=== PATIENT | female | born 1950 ===

== ENCOUNTER 2024-01-01 09:40 | Outpatient (AMB) | payer MEDICARE, OTHER, SELFPAY ==
--- NOTE | 2024-01-01 09:51 | A.OFFPC_ITS ---
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 Allergies tramadol [From Ultram] Allergy (Mild, Verified 01/01/24 09:52) rash Medication List - Last Reconciled 01/01/24 by Snow Campbell MD acetaminophen 325 mg PO Q6H PRN acetaminophen-codeine 300-30 mg 1 tab PO Q6H PRN amlodipine 5 mg PO DAILY escitalopram oxalate 20 mg PO DAILY ibuprofen 600 mg PO TID PRN lisinopril 40 mg PO DAILY omeprazole 40 mg PO DAILY semaglutide (Ozempic) 0.5 mg (0.736 mL) subcut QWEEK Tobacco use date assessed: 01/01/24 Fall risk assessment: No Falls in past year Last assessed Fall Risk: 01/01/24 Dental Screening Dental Screen Date: 01/01/24 Did you have a dental visit in the last 12 months?: Yes Did you have a dental problem in the last 6 months where you did not have access to dental care?: No Was dental information given to patient?: Patient has dentist HPI HPI Comments History of Present Illness Details The patient is a 73 year old female with a past medical history of hypertension, OA, GERD, depression presenting for follow up Depression: on lexapro 20mg daily. PHQ still positive but she is content with her current management. Declines referral . No SI Hypertension: stable on amlodipine and lisinopril. Was tolerating ozempic for weight loss then insurance stopped covering. Right leg has been feeling heavy. Increased low back pain bilateral. Ongoing left ankle pain and swelling PFSH Family History (Updated 01/01/24 @ 09:57 by Janene Nixon CMA) Mother Alcoholism Brother Diabetes History of quadruple bypass Other Substance abuse Social History (Updated 01/01/24 @ 09:54 by Janene Nixon CMA) Housing: House Patient Tobacco Use Status: Never used Tobacco e-Cigarette/Vaping Use: Never Used Second Hand Smoke Exposure: Yes (past ) service: No Current occupational status: retired Cognitive needs: No Hearing needs: No Vision needs: Yes (glasses) Questionnaire PHQ-9 Over the last 2 weeks, how often have you been bothered by any of the following problems? 1. Little interest or pleasure in doing things: more than half the days 2. Feeling down, depressed, or hopeless: several days 3. Trouble falling or staying asleep, or sleeping too much: more than half the days 4. Feeling tired or having little energy: nearly every day 5. Poor appetite or overeating: not at all 6. Feeling bad about yourself - or that you are a failure or have let yourself or your family down: not at all 7. Trouble concentrating on things, such as reading the newspaper or watching television: several days 8. Moving or speaking so slowly that other people could have noticed. Or the opposite - being so fidgety or restless that you have been moving around a lot more than usual: not at all 9. Thoughts that you would be better off or of hurting yourself in some way: not at all Total score: 9 Depression Screening Interpretation: Positive Depression Screening Follow-up: Existing condition and Other (declines medication changes or addition) Depression Screening Done: Yes 35280 - PHQ-9 Billing: Yes Source: Developed by Drs. Nash Denny, Maggie Cuellar, Luisito Canales and colleagues, with an educational milind from [employer]. Thrive Questionnaire Date Thrive assessed: 01/01/24 I am a: Patient What is your living situation today?: I have a steady place to live Within the past 12 months, did the food you bought not last and you didn't have the money to get more?: Never true Within the past 12 months, did you worry whether your food would run out before you got money to buy more?: Never true Do you have trouble paying for medicines?: No Do you have trouble getting transportation to medical appointments?: No Do you have trouble paying your heating and electricity bill?: No Do you have trouble taking care of your child, family member or friend?: No Do you have trouble with day-to-day activities such as bathing, preparing meals, shopping, managing finances, etc.?: No Are you currently unemployed and looking for a job?: No Are you interested in more education?: No Please select the resources that you would like help with: None Currently or been in a relationship where the following occur: no concerns reported THRIVE Score: 0 AUDIT C Alcohol Use Questionnaire (AUDIT-C) 1. How often do you have a drink containing alcohol?: 2-4 times a month (1-2 times a week) 2. How many drinks containing alcohol do you have on a typical day when you are drinking?: 1 or 2 Total Score: 2 JINA-7 AMB Questionnaire JINA-7 Date JINA - 7 assessed: 01/01/24 Feeling nervous, anxious, or on edge: 1 = Several days Not being able to stop or control worryin = Nearly every day Worrying too much about different things: 3 = Nearly every day Trouble relaxin = More than half the days Being so restless that it is hard to sit still: 0 = Not at all Becoming easily annoyed or irritable: 0 = Not at all Feeling afraid as if something awful might happen: 2 = More than half the days Total JINA-7 score (0-4 normal; 5-9 mild; 10-14 moderate; 15-21 severe): 11 Source: Developed by Drs. Nash Denny, Maggie Cuellar, Luisito Canales and colleagues, with an educational milind from [employer]. JINA-7 Assessment Billing JINA-7 Assessment Tool: JINA-7 Assessment 44231 Review of Systems Const Details: ROS CONSTITUTIONAL: Denies weight loss, fever and chills. HEENT: Denies changes in vision and hearing. RESPIRATORY: Denies SOB and cough. CV: Denies palpitations and CP GI: Denies abdominal pain, nausea, vomiting and diarrhea. : Denies dysuria and urinary frequency. MSK: Denies new myalgia and joint pain. SKIN: Denies rash and pruritus. NEUROLOGICAL: Denies headache PSYCHIATRIC: see hpi Physical exam (Primary Care) Vital Signs: Last Vital Signs Temp 98.2 F 01/01/24 10:05 Pulse 80 01/01/24 10:05 Resp 14 01/01/24 10:05 BP 128/78 01/01/24 10:05 Pulse Ox 96 01/01/24 10:05 Oxygen Delivery Method Room Air 01/01/24 10:05 PHYSICAL EXAM: GENERAL: Alert and oriented x 3. NAD EYES: EOMI. Anicteric. HENT: Moist mucous membranes. No scleral icterus. No cervical lymphadenopathy. LUNGS: Clear to auscultation bilaterally. CARDIOVASCULAR: Regular rate and rhythm. No murmur. No JVD. ABDOMEN: Soft, non-tender +bs EXTREMITIES: No edema. Non-tender. SKIN: No rashes or lesions. Warm. NEUROLOGIC: No focal neurological deficits. CN II-XII grossly intact PSYCHIATRIC: Cooperative. Appropriate mood and affect BMI result Body Mass Index 36.9 Tobacco/Smoking Status: Tobacco use Status Tobacco use date assessed 01/01/24 01/01/24 10:08 Patient Tobacco Use Status Never used Tobacco 01/01/24 10:08 Tobacco use type 01/01/24 10:08 e-Cigarette/Vaping Use Never Used 01/01/24 10:08 PHQ-9: PHQ-9 Score PHQ-9: Total score 9 01/01/24 10:09 Depression Screening Interpretation: Positive Depression Screening Follow-up: Existing condition and Other (declines medication changes or addition) Thrive Assessment: Date of Thrive Assessment Date Thrive assessed 01/01/24 01/01/24 10:08 Currently or been in a relationship where the following occur: no concerns reported Assessment and Plan Assessment & Plan (1) Hypertension: Comment: well controlled on current medication. continue. ozempic sent for weight loss assistance Code(s): I10 - Essential (primary) hypertension Qualifiers: Hypertension type: primary hypertension Qualified Code(s): I10 - Essential (primary) hypertension (2) Major depressive disorder, recurrent episode, in partial remission: Comment: stable on current medication. declines alteration in meds. declines therapy Code(s): F33.41 - Major depressive disorder, recurrent, in partial remission (3) GERD without esophagitis: Comment: stable on PPI Code(s): K21.9 - Gastro-esophageal reflux disease without esophagitis (4) Lumbosacral radiculopathy: Comment: referral to physiatry. xray ordered. patient request order for Sharif Code(s): M54.17 - Radiculopathy, lumbosacral region (5) Left ankle pain: Code(s): M25.572 - Pain in left ankle and joints of left foot Qualifiers: Chronicity: unspecified Qualified Code(s): M25.572 - Pain in left ankle and joints of left foot Plan: xr ordered. referral placed to physiatry. (6) Lumbosacral radiculopathy: Comment: referral to physiatry. xray ordered. patient request order for Sharif Code(s): M54.17 - Radiculopathy, lumbosacral region (7) Left ankle pain: Code(s): M25.572 - Pain in left ankle and joints of left foot Qualifiers: Chronicity: unspecified Qualified Code(s): M25.572 - Pain in left ankle and joints of left foot (8) Screening for hyperlipidemia: Code(s): Z13.220 - Encounter for screening for lipoid disorders (9) Screening, deficiency anemia, iron: Code(s): Z13.0 - Encounter for screening for diseases of the blood and blood-forming organs and certain disorders involving the immune mechanism Orders: Orders XR lumbar spine 2-3V Today M25.572 - Pain in left ankle and joints of left foot, M54.17 - Radiculopathy, lumbosacral region XR ankle LT min 3V Today M25.572 - Pain in left ankle and joints of left foot, M54.17 - Radiculopathy, lumbosacral region TSH reflex Free T4 Today F33.41 - Major depressive disorder, recurrent, in partial remission, I10 - Essential (primary) hypertension, Z13.0 - Encounter for screening for diseases of the blood and blood-forming organs and certain disorders involving the immune mechanism, Z13.220 - Encounter for screening for lipoid disorders Lipid Panel Today F33.41 - Major depressive disorder, recurrent, in partial remission, I10 - Essential (primary) hypertension, Z13.0 - Encounter for screening for diseases of the blood and blood-forming organs and certain disorders involving the immune mechanism, Z13.220 - Encounter for screening for lipoid disorders Complete Blood Count Auto Diff Today F33.41 - Major depressive disorder, recurrent, in partial remission, I10 - Essential (primary) hypertension, Z13.0 - Encounter for screening for diseases of the blood and blood-forming organs and certain disorders involving the immune mechanism, Z13.220 - Encounter for screening for lipoid disorders Comprehensive Met. Panel Today F33.41 - Major depressive disorder, recurrent, in partial remission, I10 - Essential (primary) hypertension, Z13.0 - Encounter for screening for diseases of the blood and blood-forming organs and certain disorders involving the immune mechanism, Z13.220 - Encounter for screening for lipoid disorders Referrals Physical Medicine and Rehabilitation Referral M25.572 - Pain in left ankle and joints of left foot, M54.17 - Radiculopathy, lumbosacral region Medications: New semaglutide (Ozempic) 0.5 mg (0.736 mL) subcut QWEEK 3 mL 3RF acetaminophen-codeine 300-30 mg 1 tab PO Q6H 30 days PRN 60 tabs 0RF pain Coding Level of Care Code Est Pt Level 5 (98591) Complex EM visit Add On G2211 Diagnoses Primary hypertension I10 Hypertension type: primary hypertension Major depressive disorder, recurrent episode, in partial remission F33.41 GERD without esophagitis K21.9 Lumbosacral radiculopathy M54.17 Left ankle pain, unspecified chronicity M25.572 Chronicity: unspecified Screening for hyperlipidemia Z13.220 Screening, deficiency anemia, iron Z13.0 Additional Codes JINA-7 Assessment Billing - JINA-7 Assessment Tool: JINA-7 Assessment 99348 ([id number]) Time Spent (min) 43
[2024-01-01 10:05] VITALS: BP 128/78; PULSE 80; RESP 14; TEMP 36.8; O2SAT 96; BMI 36.9
== END 2024-01-01 10:45 | disposition home or self-care (01) ==
PROVIDERS: PCP Internal Medicine; Visit Provider Internal Medicine
DX: I10 Essential (primary) hypertension (principal); F33.41 Major depressive disorder, recurrent, in partial remission; K21.9 Gastro-esophageal reflux disease without esophagitis; M54.17 Radiculopathy, lumbosacral region; M25.572 Pain in left ankle and joints of left foot; Z13.220 Encounter for screening for lipoid disorders; Z13.0 Encounter for screening for diseases of the blood and blood-forming organs and certain disorders involving the immune mechanism
CPT/HCPCS: 99215; G2211

== ENCOUNTER 2024-01-01 10:48 | Outpatient (REF) | payer MEDICARE, OTHER, SELFPAY ==
[2024-01-01 14:27] LABS: MANUAL DIFF FLAG NO
[2024-01-01 14:32] LABS: Basophils Absolute Auto 0.1 X10*3/uL (0.0-0.2); Basophils Percent Auto 1.3 % (0-2); Eosinophils Absolute Auto 0.3 X10*3/uL (0.0-0.4); Eosinophils Percent Auto 4.3 % (0-4); Hematocrit 32.8 % (37.0-47.0); Imm Gran Abs Auto 0.06 X10*3/uL (0.00-0.03); Imm Gran Pct Auto 0.8 % (0.0-0.4); Lymphocytes Absolute Auto 1.7 X10*3/uL (1.2-4.9); Lymphocytes Percent Auto 22.8 % (20-40); Mean Corpuscular HGB Conc 30.5 g/dl (31.0-35.0); Mean Corpuscular Hemoglobin 23.1 pg (27.0-33.0); Mean Corpuscular Volume 75.9 fL (80.0-98.0); Monocytes Absolute Auto 0.5 X10*3/uL (0.1-1.2); Neutrophils Absolute Auto 4.9 x10*3/uL (2.0-8.3); Neutrophils Percent Auto 64.8 % (45-73); Platelet Count 431 X10*3/uL (160-400); Red Blood Count 4.32 X10*6/uL (4.20-5.50); Red Cell Distribution Width 16.5 % (11.0-16.0); White Blood Count 7.5 X10*3/uL (4.8-10.8)
[2024-01-01 15:25] LABS: Alanine Aminotransferase 14 U/L (0-31); Albumin Level 4.2 g/dL (3.5-5.0); Alkaline Phosphatase 50 U/L (39-117); Anion Gap 11 (12-20); Aspartate Amino Transferase 15 U/L (5-31); Bilirubin Total 0.4 mg/dL (0.0-1.0); Blood Urea Nitrogen 8 mg/dL (9-16); Calcium 9.3 mg/dL (8.4-10.2); Carbon Dioxide 28 mmol/L (22-29); Chloride 104 mmol/L (96-108); Cholesterol 181 mg/dL (<200); Estimated Glomerular Filt Rate > 60; Glucose Random 83 mg/dL (60-115); HDL Cholesterol 55 mg/dL (>40); LDL Cholesterol Calculated 105 mg/dL (<100); Potassium 3.9 mmol/L (3.3-5.1); Sodium 139 mmol/L (135-145); TSH reflex Free T4 1.85 uIU/mL (0.32-4.0); Total Protein 7.3 g/dL (6.5-8.0); Triglycerides 107 mg/dL (<150)
== END 2024-01-01 10:49 | disposition home or self-care (01) ==
LOC: HO.WFDLDS 10:48
PROVIDERS: Visit Provider Internal Medicine
DX: I10 Essential (primary) hypertension (principal); F33.41 Major depressive disorder, recurrent, in partial remission; Z13.220 Encounter for screening for lipoid disorders; Z13.0 Encounter for screening for diseases of the blood and blood-forming organs and certain disorders involving the immune mechanism
CPT/HCPCS: 36415; 80053; 80061; 84443; 85025

== ENCOUNTER 2024-03-30 10:16 | Outpatient (AMB) | payer MEDICARE, OTHER, SELFPAY ==
--- NOTE | 2024-03-30 10:18 | MHC.PC.OV ---
Vital Signs 03/30/24 10:20 Height 5 ft 4 in Weight 211 lb BMI 36.2 BP 110/64 Blood Pressure Location Rt brachial Position Sitting Respiration 12 Pulse 92 Pulse Source Pulse Oximeter Pulse Oximetry (%) 96 Oxygen Delivery Method Room Air Intake Visit Reasons: pre op appointment for eye surgery 04/12 Intake Note: Patient is here for a pre-op for eye surgery in [place] by Dr. Garcia. Patient reports no history of cardiac concerns. 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 No chest pain, exertional dypsnea. Depression: Feeling really well on lexapro 20mg daily. Hypertension: stable on amlodipine and lisinopril. Was tolerating ozempic for weight loss then insurance stopped covering. MSK: stable LS radiculopathy. Right leg has been feeling heavy. Increased low back pain bilateral. Ongoing left ankle pain and swelling. interval xray with significant DDD. MRI was performed at [facility], not yet received. Colonoscopy 2022 ROS CONSTITUTIONAL: Denies weight loss, fever and chills. HEENT: Denies changes in vision and hearing. RESPIRATORY: Denies SOB and cough. CV: Denies palpitations and CP GI: Denies abdominal pain, nausea, vomiting and diarrhea. : Denies dysuria and urinary frequency. MSK: Denies new myalgia and joint pain. SKIN: Denies rash and pruritus. NEUROLOGICAL: Denies headache PSYCHIATRIC: Denies recent changes in mood. PHYSICAL EXAM: GENERAL: Alert and oriented x 3. NAD EYES: EOMI. Anicteric. HENT: Moist mucous membranes. No scleral icterus. No cervical lymphadenopathy. LUNGS: Clear to auscultation bilaterally. CARDIOVASCULAR: Regular rate and rhythm. No murmur. No JVD. ABDOMEN: Soft, non-tender +bs EXTREMITIES: No edema. Non-tender. SKIN: No rashes or lesions. Warm. NEUROLOGIC: No focal neurological deficits. CN II-XII grossly intact PSYCHIATRIC: Cooperative. Appropriate mood and affect [facility] Medical History (Updated 04/04/24 @ 10:53 by Snow Campbell MD) Hypertension Major depressive disorder, recurrent episode, in partial remission GERD without esophagitis Lumbosacral radiculopathy Left ankle pain Anemia, unspecified DDD (degenerative disc disease), lumbosacral Surgical History (Updated 03/30/24 @ 13:01 by Tia Jones [facility]) History of foot surgery Status post excision of lipoma History of cholecystectomy Family History (Updated 01/01/24 @ 09:57 by Janene Nixon [facility]) Mother Alcoholism Brother Diabetes History of quadruple bypass Other Substance abuse Social History (Updated 03/30/24 @ 13:02 by Tia Jones [facility]) Household Members: None Housing: House Are you a primary medication care manager to a significant other at home: No Do you presently have visiting nurse or other home services: No 75 years or older and lives alone: No Alcohol intake: never Patient Tobacco Use Status: Never used Tobacco e-Cigarette/Vaping Use: Never Used Second Hand Smoke Exposure: Yes (past ) Use of substances other than those prescribed or required for medical reasons: No Have you been hit, kicked, punched, or otherwise hurt by someone within the past year? If so, by whom?: No Do you feel safe in your current relationship?: No Current Relationship Is there a partner from a previous relationship who is making you feel unsafe now?: No Are you made to feel afraid or neglected: No service: No Current occupational status: retired Current occupational exposures/hazards: No Cognitive needs: No Hearing needs: No Vision needs: Yes (glasses) Questionnaire Thrive Questionnaire Date Thrive assessed: 01/01/24 JINA-7 AMB Questionnaire JINA-7 Date JINA - 7 assessed: 01/01/24 Source: Developed by Drs. Nash Denny, Maggie Cuellar, Luisito Canales and colleagues, with an educational milind from [employer]. Physical exam (Primary Care) Vital Signs: Last Vital Signs Pulse 92 03/30/24 10:20 Resp 12 03/30/24 10:20 BP 110/64 03/30/24 10:20 Pulse Ox 96 03/30/24 10:20 Oxygen Delivery Method Room Air 03/30/24 10:20 BMI result Body Mass Index 36.2 Tobacco/Smoking Status: Tobacco use Status Tobacco use date assessed 01/01/24 03/30/24 10:19 Patient Tobacco Use Status Never used Tobacco 03/30/24 13:02 Tobacco use type 01/01/24 10:43 e-Cigarette/Vaping Use Never Used 03/30/24 13:02 Thrive Assessment: Date of Thrive Assessment Date Thrive assessed 01/01/24 03/30/24 10:19 Office Procedures EKG Details: Cancelled- EKG machine Out of order [id number], Complete (DID NOT COMPLETE) Assessment and Plan Assessment & Plan (1) Preoperative cardiovascular examination: Code(s): Z01.810 - Encounter for preprocedural cardiovascular examination Plan: 73 y/o female with htn, depression, LS DDD for preop assessment No surgical risk factors Acceptable METs Has to return for EKG at which time addendum to be added. Overall low risk patient for low risk procedure (2) Hypertension: Code(s): I10 - Essential (primary) hypertension Qualifiers: Hypertension type: primary hypertension Qualified Code(s): I10 - Essential (primary) hypertension Plan Blood pressure well controlled. Orders: Orders AMB EKG-In Office 03/30/24 Z01.818 - Encounter for other preprocedural examination Coding Level of Care Code Est Pt Level 4 (95956) Diagnoses Preoperative cardiovascular examination Z01.810 Primary hypertension I10 Hypertension type: primary hypertension CPT Codes EKG - CPT: 77008-[id number], Complete ([id number])
[2024-03-30 10:20] VITALS: BP 110/64; PULSE 92; RESP 12; O2SAT 96; BMI 36.2
== END 2024-03-30 11:16 | disposition home or self-care (01) ==
PROVIDERS: PCP Internal Medicine; Visit Provider Internal Medicine
DX: I10 Essential (primary) hypertension (principal)
CPT/HCPCS: 93000; 99214

== ENCOUNTER 2024-06-14 08:58 | Outpatient (AMB) | payer MEDICARE, OTHER, SELFPAY ==
--- NOTE | 2024-06-14 09:01 | MHC.PC.OV ---
Vital Signs 06/14/24 09:05 Height 5 ft 4 in Weight 214 lb BMI 36.7 BP 118/76 Blood Pressure Location Lt brachial Position Sitting Respiration 16 Pulse 98 Pulse Source Pulse Oximeter Pulse Oximetry (%) 95 Oxygen Delivery Method Room Air Intake Visit Reasons: F/U 6 months Intake Note: Six month follow up Tipple Tender Required: No Allergies tramadol [From Ultram] Allergy (Mild, Verified 06/14/24 09:02) rash Tobacco use date assessed: 01/01/24 Dental Screening Dental Screen Date: 01/01/24 HPI HPI Comments History of Present Illness Details The patient is a 73 year old female with a past medical history of hypertension, OA, GERD, depression presenting for follow up Depression: Stable on lexapro 20mg daily. She has increased stress from her 26 year old son-he moved out of the house abruptly after desiring to undergo sex change but wouldn't talk to the family about things and now is not in contact. Hypertension: stable on amlodipine and lisinopril. Was tolerating ozempic for weight loss then insurance stopped covering. MSK: stable LS radiculopathy. Right leg has been feeling heavy. Increased low back pain bilateral. Ongoing left ankle pain and swelling. interval xray with significant DDD. MRI was performed at [facility]-patient was referred to physiatry Colonoscopy 2022 ROS CONSTITUTIONAL: Denies weight loss, fever and chills. HEENT: Denies changes in vision and hearing. RESPIRATORY: Denies SOB and cough. CV: Denies palpitations and CP GI: Denies abdominal pain, nausea, vomiting and diarrhea. : Denies dysuria and urinary frequency. MSK: Denies new myalgia and joint pain. SKIN: Denies rash and pruritus. NEUROLOGICAL: Denies headache PSYCHIATRIC: see HPI PHYSICAL EXAM: GENERAL: Alert and oriented x 3. NAD EYES: EOMI. Anicteric. HENT: Moist mucous membranes. No scleral icterus. No cervical lymphadenopathy. LUNGS: Clear to auscultation bilaterally. CARDIOVASCULAR: Regular rate and rhythm. No murmur. No JVD. ABDOMEN: Soft, non-tender +bs EXTREMITIES: No edema. Non-tender. SKIN: No rashes or lesions. Warm. NEUROLOGIC: No focal neurological deficits. CN II-XII grossly intact PSYCHIATRIC: Cooperative. Appropriate mood and affect [facility] Medical History (Updated 06/14/24 @ 09:45 by Snow Campbell MD) Hypertension Major depressive disorder, recurrent episode, in partial remission GERD without esophagitis Lumbosacral radiculopathy Left ankle pain Anemia, unspecified DDD (degenerative disc disease), lumbosacral Surgical History (Updated 03/30/24 @ 13:01 by Tia Jones [facility]) History of foot surgery Status post excision of lipoma History of cholecystectomy Family History (Updated 01/01/24 @ 09:57 by Janene Nixon [facility]) Mother Alcoholism Brother Diabetes History of quadruple bypass Other Substance abuse Social History (Updated 03/30/24 @ 13:02 by Tia Jones [facility]) Household Members: None Housing: House Are you a primary care transition manager to a significant other at home: No Do you presently have visiting nurse or other home services: No Alcohol intake: never Patient Tobacco Use Status: Never used Tobacco e-Cigarette/Vaping Use: Never Used Second Hand Smoke Exposure: Yes (past ) service: No Current occupational status: retired Current occupational exposures/hazards: No Cognitive needs: No Hearing needs: No Vision needs: Yes (glasses) Questionnaire PHQ-9 Over the last 2 weeks, how often have you been bothered by any of the following problems? 1. Little interest or pleasure in doing things: more than half the days 2. Feeling down, depressed, or hopeless: not at all 3. Trouble falling or staying asleep, or sleeping too much: several days 4. Feeling tired or having little energy: several days 5. Poor appetite or overeating: nearly every day 6. Feeling bad about yourself - or that you are a failure or have let yourself or your family down: not at all 7. Trouble concentrating on things, such as reading the newspaper or watching television: not at all 8. Moving or speaking so slowly that other people could have noticed. Or the opposite - being so fidgety or restless that you have been moving around a lot more than usual: not at all 9. Thoughts that you would be better off or of hurting yourself in some way: not at all Total score: 7 Depression Screening Interpretation: Positive (continue current medications) Depression Screening Follow-up: Existing condition Depression Screening Done: Yes 91654 - PHQ-9 Billing: Yes Source: Developed by Drs. Nash Denny, Maggie Cuellar, Luisito Canales and colleagues, with an educational milind from [employer]. Thrive Questionnaire Date Thrive assessed: 06/07/24 I am a: Patient What is your living situation today?: I have a steady place to live Within the past 12 months, did the food you bought not last and you didn't have the money to get more?: Never true Within the past 12 months, did you worry whether your food would run out before you got money to buy more?: Never true Do you have trouble paying for medicines?: No Do you have trouble getting transportation to medical appointments?: No Do you have trouble paying your heating and electricity bill?: No Do you have trouble taking care of your child, family member or friend?: No Do you have trouble with day-to-day activities such as bathing, preparing meals, shopping, managing finances, etc.?: No Are you currently unemployed and looking for a job?: No Are you interested in more education?: No Please select the resources that you would like help with: None Currently or been in a relationship where the following occur: No concerns reported THRIVE Score: 0 AUDIT C Alcohol Use Questionnaire (AUDIT-C) 1. How often do you have a drink containing alcohol?: Monthly or less 2. How many drinks containing alcohol do you have on a typical day when you are drinking?: 1 or 2 3. How often do you have six or more drinks on one occasion?: Never Total Score: 1 JINA-7 AMB Questionnaire JINA-7 Date JINA - 7 assessed: 01/01/24 Feeling nervous, anxious, or on edge: 0 = Not at all Not being able to stop or control worryin = Not at all Worrying too much about different things: 0 = Not at all Trouble relaxin = Not at all Being so restless that it is hard to sit still: 0 = Not at all Becoming easily annoyed or irritable: 0 = Not at all Feeling afraid as if something awful might happen: 0 = Not at all Total JINA-7 score (0-4 normal; 5-9 mild; 10-14 moderate; 15-21 severe): 0 Source: Developed by Maggie Simms, Luisito Canales and colleagues, with an educational milind from [employer]. Physical exam (Primary Care) Vital Signs: Last Vital Signs Pulse 98 06/14/24 09:05 Resp 16 06/14/24 09:05 BP 118/76 06/14/24 09:05 Pulse Ox 95 06/14/24 09:05 Oxygen Delivery Method Room Air 06/14/24 09:05 BMI result Body Mass Index 36.7 Tobacco/Smoking Status: Tobacco use Status Tobacco use date assessed 01/01/24 06/14/24 09:07 Patient Tobacco Use Status Never used Tobacco 06/14/24 09:07 Tobacco use type 01/01/24 10:43 e-Cigarette/Vaping Use Never Used 06/14/24 09:07 Depression Screening Interpretation: Positive (continue current medications) Depression Screening Follow-up: Existing condition Thrive Assessment: Date of Thrive Assessment Date Thrive assessed 06/07/24 06/14/24 09:07 Currently or been in a relationship where the following occur: No concerns reported Coding Level of Care Code Est Pt Level 4 (95501) Complex EM visit Add On G2211 Diagnoses Primary hypertension I10 Hypertension type: primary hypertension Major depressive disorder, recurrent episode, in partial remission F33.41 Lumbosacral radiculopathy M54.17 Anemia, unspecified type D64.9 Anemia type: unspecified type Assessment & Plan Assessment & Plan (1) Hypertension: Code(s): I10 - Essential (primary) hypertension Category: Medical Qualifiers: Hypertension type: primary hypertension Qualified Code(s): I10 - Essential (primary) hypertension Plan: stable on current medications. continued efforts toward weight loss (2) Major depressive disorder, recurrent episode, in partial remission: Code(s): F33.41 - Major depressive disorder, recurrent, in partial remission Category: Medical Plan: stable on current medication. declines alteration in meds. declines therapy (3) Lumbosacral radiculopathy: Code(s): M54.17 - Radiculopathy, lumbosacral region Category: Medical Plan: stable (4) Anemia, unspecified: Code(s): D64.9 - Anemia, unspecified Category: Medical Qualifiers: Anemia type: unspecified type Qualified Code(s): D64.9 - Anemia, unspecified Plan: check cbc iron. iron adjustment prn. colonoscopy recent Orders: Orders Lipid Panel Today D64.9 - Anemia, unspecified, F33.41 - Major depressive disorder, recurrent, in partial remission, I10 - Essential (primary) hypertension, M51.37 - Other intervertebral disc degeneration, lumbosacral region IRON PROFILE Today D64.9 - Anemia, unspecified Complete Blood Count Auto Diff Today D64.9 - Anemia, unspecified, F33.41 - Major depressive disorder, recurrent, in partial remission, I10 - Essential (primary) hypertension, M51.37 - Other intervertebral disc degeneration, lumbosacral region Comprehensive Met. Panel Today D64.9 - Anemia, unspecified, F33.41 - Major depressive disorder, recurrent, in partial remission, I10 - Essential (primary) hypertension, M51.37 - Other intervertebral disc degeneration, lumbosacral region Hemoglobin A1c Today D64.9 - Anemia, unspecified, F33.41 - Major depressive disorder, recurrent, in partial remission, I10 - Essential (primary) hypertension, M51.37 - Other intervertebral disc degeneration, lumbosacral region Medications: Refilled acetaminophen-codeine 300-30 mg 1 tab PO Q6H 30 days PRN 60 tabs 0RF pain phentermine must administer 30 minutes before or 1-2 hours after breakfast 37.5 mg PO DAILY 30 caps 0RF
[2024-06-14 09:05] VITALS: BP 118/76; PULSE 98; RESP 16; O2SAT 95; BMI 36.7
== END 2024-06-14 09:35 | disposition home or self-care (01) ==
PROVIDERS: PCP Internal Medicine; Visit Provider Internal Medicine
DX: I10 Essential (primary) hypertension (principal); F33.41 Major depressive disorder, recurrent, in partial remission; M54.17 Radiculopathy, lumbosacral region; D64.9 Anemia, unspecified

== ENCOUNTER → 2024-06-14 08:58 | Outpatient (BNVA) | payer MEDICARE, OTHER, SELFPAY | PROVIDERS: PCP Internal Medicine; Visit Provider Internal Medicine | DX: I10 Essential (primary) hypertension (principal); F33.41 Major depressive disorder, recurrent, in partial remission; M54.17 Radiculopathy, lumbosacral region; D64.9 Anemia, unspecified | CPT/HCPCS: 99212 ==

== ENCOUNTER 2024-06-14 09:41 | Outpatient (REF) | payer MEDICARE, OTHER, SELFPAY ==
[2024-06-14 11:11] LABS: MANUAL DIFF FLAG NO
[2024-06-14 11:28] LABS: Basophils Absolute Auto 0.2 X10*3/uL (0.0-0.2); Eosinophils Absolute Auto 0.3 X10*3/uL (0.0-0.4); Eosinophils Percent Auto 3.5 % (0-4); Hematocrit 40.9 % (37.0-47.0); Hemoglobin 13.4 g/dl (12.0-16.0); Imm Gran Abs Auto 0.12 X10*3/uL (0.00-0.03); Imm Gran Pct Auto 1.5 % (0.0-0.4); Lymphocytes Absolute Auto 1.4 X10*3/uL (1.2-4.9); Lymphocytes Percent Auto 17.1 % (20-40); Mean Corpuscular HGB Conc 32.8 g/dl (31.0-35.0); Mean Corpuscular Volume 85.4 fL (80.0-98.0); Mean Platelet Volume 9.1 fL (9.4-12.3); Monocytes Absolute Auto 0.5 X10*3/uL (0.1-1.2); Monocytes Percent Auto 5.9 % (2-11); Neutrophils Absolute Auto 5.7 x10*3/uL (2.0-8.3); Platelet Count 380 X10*3/uL (160-400); Red Blood Count 4.79 X10*6/uL (4.20-5.50); Red Cell Distribution Width 14.3 % (11.0-16.0); White Blood Count 8.2 X10*3/uL (4.8-10.8)
[2024-06-14 11:52] LABS: Estimated Average Glucose 100 mg/dL; Hemoglobin A1C 104.8082 umol/L; Hemoglobin A1c % 5.1 % (<6.0); Total Hemoglobin (HGBA1C) 3221.1707 umol/L
[2024-06-14 12:20] LABS: Alanine Aminotransferase 16 U/L (0-31); Albumin Level 4.4 g/dL (3.5-5.0); Alkaline Phosphatase 55 U/L (39-117); Anion Gap 15 (12-20); Aspartate Amino Transferase 16 U/L (5-31); Bilirubin Total 0.5 mg/dL (0.0-1.0); Blood Urea Nitrogen 10 mg/dL (9-16); Calcium 9.7 mg/dL (8.4-10.2); Carbon Dioxide 26 mmol/L (22-29); Chloride 102 mmol/L (96-108); Cholesterol 195 mg/dL (<200); Estimated Glomerular Filt Rate > 60; Glucose Random 99 mg/dL (60-115); HDL Cholesterol 58 mg/dL (>40); Iron 176 mcg/dL (30-160); LDL Cholesterol Calculated 113 mg/dL (<100); Percent Iron Saturation 52 % (15-50); Potassium 4.2 mmol/L (3.3-5.1); Sodium 139 mmol/L (135-145); Total Iron Binding Capacity 341 mcg/dL (228-428); Total Protein 7.6 g/dL (6.5-8.0); Triglycerides 120 mg/dL (<150); Unsaturated Iron Binding 165 ug/dL
== END 2024-06-14 09:42 | disposition home or self-care (01) ==
LOC: HO.WFDLDS 09:41
PROVIDERS: Visit Provider Internal Medicine
DX: I10 Essential (primary) hypertension (principal); F33.41 Major depressive disorder, recurrent, in partial remission; M54.17 Radiculopathy, lumbosacral region; D64.9 Anemia, unspecified; M51.379 Other intervertebral disc degeneration, lumbosacral region without mention of lumbar back pain or lower extremity pain
CPT/HCPCS: 36415; 80053; 80061; 83036; 83540; 85025; 99212

== ENCOUNTER 2025-02-28 14:15 | Outpatient (AMB) | payer MEDICARE, OTHER, SELFPAY ==
--- NOTE | 2025-02-28 14:19 | MHC.PC.OV ---
Intake Visit Reasons: mawv Allergies tramadol (From Ultra) Allergy (Mild, Verified 06/14/24 09:02) rash Tobacco use date assessed: 01/01/24 Dental Screening Dental Screen Date: 01/01/24 [facility] Medical History (Updated 06/14/24 @ 09:45 by Snow Campbell MD) Hypertension Major depressive disorder, recurrent episode, in partial remission GERD without esophagitis Lumbosacral radiculopathy Left ankle pain Anemia, unspecified DDD (degenerative disc disease), lumbosacral Surgical History (Updated 03/30/24 @ 13:01 by Tia Jones CMA) History of foot surgery Status post excision of lipoma History of cholecystectomy Family History (Updated 01/01/24 @ 09:57 by Janene Nixon [employer]) Mother Alcoholism Brother Diabetes History of quadruple bypass Other Substance abuse Social History (Updated 03/30/24 @ 13:02 by Tia Jones CMA) Household Members: None Housing: House Are you a primary director critical care to a significant other at home: No Do you presently have visiting nurse or other home services: No 75 years or older and lives alone: No Alcohol intake: never Patient Tobacco Use Status: Never used Tobacco e-Cigarette/Vaping Use: Never Used Second Hand Smoke Exposure: Yes (past ) service: No Current occupational status: retired Current occupational exposures/hazards: No Cognitive needs: No Hearing needs: No Vision needs: Yes (glasses) Questionnaire Thrive Questionnaire Date Thrive assessed: 02/28/25 I am a: Patient What is your living situation today?: I have a steady place to live Within the past 12 months, did the food you bought not last and you didn't have the money to get more?: Never true Within the past 12 months, did you worry whether your food would run out before you got money to buy more?: Never true Do you have trouble paying for medicines?: No Do you have trouble getting transportation to medical appointments?: No Do you have trouble paying your heating and electricity bill?: No Do you have trouble taking care of your child, family member or friend?: No Do you have trouble with day-to-day activities such as bathing, preparing meals, shopping, managing finances, etc.?: No Are you currently unemployed and looking for a job?: No Are you interested in more education?: No Please select the resources that you would like help with: None Currently or been in a relationship where the following occur: No concerns reported THRIVE Score: 0 JINA-7 AMB Questionnaire JINA-7 Date JINA - 7 assessed: 01/01/24 Source: Developed by Drs. Nash Denny, Maggie Cuellar, Luisito Canales and colleagues, with an educational milind from [employer]). Physical exam (Primary Care) Tobacco/Smoking Status: Tobacco use Status Tobacco use date assessed 01/01/24 06/14/24 09:07 Patient Tobacco Use Status Never used Tobacco 06/14/24 09:07 Tobacco use type 01/01/24 10:43 e-Cigarette/Vaping Use Never Used 06/14/24 09:07 Thrive Assessment: Date of Thrive Assessment Date Thrive assessed 02/28/25 02/28/25 14:16 Currently or been in a relationship where the following occur: No concerns reported Coding
--- NOTE | 2025-02-28 14:26 | AM.OFFVISMDC ---
Intake Vital Signs 02/28/25 14:37 Height 5 ft 4 in Weight 211 lb 2 oz BMI 36.2 BP 130/76 Blood Pressure Location Lt brachial Position Sitting Respiration 14 Pulse 106 H Pulse Source Pulse Oximeter Pulse Oximetry (%) 96 Oxygen Delivery Method Room Air Intake Visit Reasons: mawv Intake Note: Medical annual wellness Production Support Supervisor Required: No Allergies tramadol (From Ultram) Allergy (Mild, Verified 02/28/25 14:26) rash HPI HPI Comments History of Present Illness Details The patient is a 74 year old female with a past medical history of hypertension, OA, GERD, depression presenting for medicare wellness visit Depression: Stable on lexapro 20mg daily. Her daughter unexpectedly a few months ago and that has been extremely tough on her. She has increased stress from her 27 year old son-he moved out of the house abruptly after desiring to undergo sex change but wouldn't talk to the family about things and now is not in contact. Hypertension: stable on amlodipine and lisinopril. Was tolerating ozempic for weight loss then insurance stopped covering. MSK: stable LS radiculopathy. Right leg has been feeling heavy. Increased low back pain bilateral. Ongoing left ankle pain and swelling. xray with significant DDD. MRI was performed at [facility]-patient was referred to physiatry. Doing well on tylenol codeine as needed Colonoscopy 2022 HRA reviewed Care team reviewed HCP paperwork completed ROS see HPI PHYSICAL EXAM: GENERAL: Alert and oriented x 3. NAD EYES: EOMI. Anicteric. HENT: Moist mucous membranes. No scleral icterus. No cervical lymphadenopathy. LUNGS: Clear to auscultation bilaterally. CARDIOVASCULAR: Regular rate and rhythm. No murmur. No JVD. ABDOMEN: Soft, non-tender +bs EXTREMITIES: No edema. Non-tender. SKIN: No rashes or lesions. Warm. NEUROLOGIC: No focal neurological deficits. CN II-XII grossly intact PSYCHIATRIC: Cooperative. Appropriate mood and affect [facility] Medical History Hypertension Major depressive disorder, recurrent episode, in partial remission GERD without esophagitis Lumbosacral radiculopathy Left ankle pain Anemia, unspecified DDD (degenerative disc disease), lumbosacral Surgical History History of foot surgery Status post excision of lipoma History of cholecystectomy Family History Mother Alcoholism Brother Diabetes History of quadruple bypass Other Substance abuse Social History Household Members: None Housing: House Are you a primary child care attendant school to a significant other at home: No Do you presently have visiting nurse or other home services: No Alcohol intake: never Patient Tobacco Use Status: Never used Tobacco e-Cigarette/Vaping Use: Never Used Second Hand Smoke Exposure: Yes (past ) service: No Current occupational status: retired Current occupational exposures/hazards: No Cognitive needs: No Hearing needs: No Vision needs: Yes (glasses) Questionnaire Medicare Wellness Checkup [age] What gender do you identify with?: female During the past 4 weeks, how much have you been bothered by emotional problems such as feeling anxious, depressed, irritable, sad or downhearted, and blue?: extremely During the past 4 weeks, has your physical & emotional health limited your social activities with family, friends, neighbors, or groups?: extremely During the past 4 weeks, how much bodily pain have you generally had?: mild pain During the past 4 weeks, was someone available to help you if you needed & wanted help?: yes, as much as I wanted During the past 4 weeks, what was the hardest physical activity you could do for at least 2 minutes?: moderate Can you get to places out of walking distance without help? (For eg., can you travel alone on buses, taxis or drive your car?): Yes Can you go shopping for groceries or clothes without someone's help?: Yes (orders online) Can you prepare your own meals?: Yes Can you do your housework without help?: Yes (some of it) Because of any health problems, do you need the help of another person with your personal care needs such as eating, bathing, dressing or getting around the house?: No Can you handle your own money without help?: Yes During the past 4 weeks, how would you rate your health in general?: fair During the past 4 weeks how have things been going for you?: good & bad parts about equal Are you having difficulties driving your car?: no (can drive, but choses not to ) Do you always fasten your seat belt when you are in a car?: yes, usually During past 4 weeks, have you been bothered by the following: never: Trouble eating well?, Teeth or denture problems? and Problems using the telephone?, seldom: Falling or dizzy when standing up and Sexual problems? and always: Tiredness or fatigue? Have you fallen 2 or more times in the past year?: No Are you afraid of falling?: No Are you a smoker?: no During the past 4 weeks, how many drinks of wine, beer, or other alcoholic beverages did you have?: 2-5 drinks per week Do you exercise for about 20 minutes 3 or more times a week?: no, I usually do not exercise this much Have you been given information to help with the following?: no: Hazards in your house that might hurt you? and no: Keeping track of your medications? How often do you have trouble taking medicines the way you have been told to take them?: I always take medicine as prescribed How confident are you that you can control & manage most of your health problems?: very confident What is your race?: White Mini Mental State Exam (MMSE) Orientation What is the (year) (season) (date) (day) (month)?: year (), season (summer), date (02/28/25), day and month Where are we (state) (county) (town or city) (hospital) (floor[place] state [place]), [facility] ([place]), town or city ([place]), hospital/clinic ([facility]) and floor (first) Registration Name of 3 unrelated objects clearly and slowly, then ask patient to repeat all 3 of them. (1st repeat determines score. Make sure they can repeat all three): object 1 (ball ), object 2 (flag) and object 3 (tree) Attention & Calculation (CHOOSE ONE) Ask pt to begin with 100 & count backward by 7. Stop after 5 repeats. If pt cannot ask them to spell the word WORLD backward.: 93 and 86 Recall Ask patient to repeat the 3 items from question #3.: object 1 (ball) and object 2 (flag) Language Show patient a wristwatch & ask what it is. Repeat for pencil.: watch and pencil Ask the patient to repeat the phrase 'No ifs, ands, or buts' after you.: incorrect Ask the patient to 'take a piece of paper with their right hand' 'fold paper in half' 'place paper on floor': take paper in right hand, fold paper in half and place paper on floor Print the sentence 'CLOSE YOUR EYES' on a piece. If patient actually closes eyes then score.: followed written direction Give patient a blank piece of paper & ask to write a sentence. Score if it contains a noun & verb.: sentence contains subject and verb Ask patient to copy figure of intersecting pentagons exactly. Score if all 10 angles & 2 intersects are included.: all 10 angles present & 2 are intersected Score Score: 25 Activity of Daily Living Bathing - sponge bath, tub bath or shower: receives no assistance (gets in/out by self, if usual bathing means Dressing - getting clothes from closets & drawers, including inner/outer garments & fasteners.: gets clothes & gets completely dressed without help Toileting - going to the 'toilet room' for urine/bowel elimination & cleaning self/arranging clothes: goes to toilet room, cleans self, arranges clothes without help Transfer: moves in & out of bed and chair without help (may use support object) Continence: controls urination/bowel movements completely by self Feeding: feeds self without help Total Score: 0 Information obtained from: patient Using telephone: independent Traveling: independent Shopping: independent Preparing meals: independent Housework: independent Taking medicine: independent Managing money: independent PHQ-9 Over the last 2 weeks, how often have you been bothered by any of the following problems? 1. Little interest or pleasure in doing things: nearly every day 2. Feeling down, depressed, or hopeless: nearly every day 3. Trouble falling or staying asleep, or sleeping too much: nearly every day 4. Feeling tired or having little energy: nearly every day 5. Poor appetite or overeating: nearly every day 6. Feeling bad about yourself - or that you are a failure or have let yourself or your family down: nearly every day 7. Trouble concentrating on things, such as reading the newspaper or watching television: not at all 8. Moving or speaking so slowly that other people could have noticed. Or the opposite - being so fidgety or restless that you have been moving around a lot more than usual: not at all 9. Thoughts that you would be better off or of hurting yourself in some way: not at all Total score: 18 Depression Screening Interpretation: Positive Depression Screening Done: Yes 23063 - PHQ-9 Billing: Yes Source: Developed by Drs. Nash Denny, Maggie Cuellar, Luisito Canales and colleagues, with an educational milind from [employer]. Physical Exam Vital Signs: Last Vital Signs Pulse 106 H 02/28/25 14:37 Resp 14 02/28/25 14:37 BP 130/76 02/28/25 14:37 Pulse Ox 96 02/28/25 14:37 Oxygen Delivery Method Room Air 02/28/25 14:37 BMI result Body Mass Index 36.2 Assessment & Plan Assessment & Plan (1) Medicare annual wellness visit, subsequent: Code(s): Z00.00 - Encounter for general adult medical examination without abnormal findings (2) Hypertension: Code(s): I10 - Essential (primary) hypertension Qualifiers: Hypertension type: primary hypertension Qualified Code(s): I10 - Essential (primary) hypertension (3) Major depressive disorder, recurrent episode, in partial remission: Code(s): F33.41 - Major depressive disorder, recurrent, in partial remission (4) GERD without esophagitis: Comment: stable on PPI Code(s): K21.9 - Gastro-esophageal reflux disease without esophagitis Plan 74 year old female for MWV Interval history reviewed HRA completed Depression/anxiety/grief-increased anxiety and insomnia in setting of grief. Lorazepam ordered Obesity-failed dietary efforts. Discussed unlikely that GLP will be covered Orders: Orders Comprehensive Met. Panel 02/28/25 F33.41 - Major depressive disorder, recurrent, in partial remission, I10 - Essential (primary) hypertension, K21.9 - Gastro-esophageal reflux disease without esophagitis Complete Blood Count Auto Diff 02/28/25 F33.41 - Major depressive disorder, recurrent, in partial remission, I10 - Essential (primary) hypertension, K21.9 - Gastro-esophageal reflux disease without esophagitis Hemoglobin A1c 02/28/25 F33.41 - Major depressive disorder, recurrent, in partial remission, I10 - Essential (primary) hypertension, K21.9 - Gastro-esophageal reflux disease without esophagitis IRON PROFILE 02/28/25 D64.9 - Anemia, unspecified Medications: New lorazepam 1 mg PO BID PRN 60 tabs 0RF anxiety Mounjaro (tirzepatide) for 4 weeks 2.5 mg (0.5 mL) subcut QWEEK 2 mL 0RF NS E66.9 - Obesity, unspecified, I10 - Essential (primary) hypertension Refilled ibuprofen 600 mg PO Q6H PRN 360 tabs 3RF for moderate pain acetaminophen-codeine 300-30 mg 1 tab PO Q6H PRN 60 tabs 1RF pain 30 days M51.37 - Other intervertebral disc degeneration, lumbosacral region Discontinued phentermine must administer 30 minutes before or 1-2 hours after breakfast Discontinued Reason: Doctor's Order 37.5 mg PO DAILY 30 caps 0RF Quality Reporting (2019) Fall Risk Screening ([facility] 139) Last assessed Fall Risk: 02/28/25 Fall risk assessment: No Falls in past year Depression/Bipolar (159/160/161/177) PHQ-9: Total score: 18 Coding Level of Care Code Medicare Subsequent (G0439) Diagnoses Medicare annual wellness visit, subsequent Z00.00 Primary hypertension I10 Hypertension type: primary hypertension Major depressive disorder, recurrent episode, in partial remission F33.41 GERD without esophagitis K21.9 CPT Codes Advance Care Planning - Time spent: 1-15 minutes, on File ([id number]) Additional Codes PHQ-9 - 33948 - PHQ-9 Billing: Yes ([id number]) Advance Care Planning Advance Care Planning discussion: Completed/Scanned Forms completed: Health Care Proxy Time spent: 1-15 minutes, on File Did not discuss due to Cultural/Spiritual beliefs: Yes
[2025-02-28 14:37] VITALS: BP 130/76; PULSE 106; RESP 14; O2SAT 96; BMI 36.2
--- OUTSIDE RECORDS SUMMARY | 2025-02-28 15:49 | XMS_ITS | Clinical Summary ---
Author Organization [facility] Address [address] [place] [address] Care Team Providers Care Materials Planner/Production Planner Name Role Phone Snow Campbell MD Primary Care Provider Allergies Active Allergy Reactions Criticality Noted Date Comments Tramadol 05/12/2020 Medications Medication Sig Dispensed Refills Start Date End Date Status lisinopril (PRINIVIL,ZESTRIL) tablet 20 mg Take 20 mg by mouth daily. 0 Active Albuterol Sulfate 108 (90 Base) MCG/ACT AEPB Inhale 2 puffs into the lungs every 4 (four) hours as needed. 0 Active ibuprofen (ADVIL,MOTRIN) 800 MG tablet Take 800 mg by mouth every 8 (eight) hours as needed for pain. 0 Active omeprazole (PriLOSEC) 40 MG capsule Take 40 mg by mouth daily. 0 Active fluticasone (FLONASE) 50 MCG/ACT nasal spray spray/apply 2 sprays in each nostril daily. 0 Active albuterol (PROVENTIL) (2.5 MG/3ML) 0.083% nebulizer solution Take 2.5 mg by nebulization every 6 (six) hours as needed for wheezing. 0 Active ferrous sulfate 325 (65 FE) MG tablet Take 1 tablet (325 mg total) by mouth 2 (two) times a day with meals. 90 tablet 0 05/19/2020 Active Active Problems Problem Noted Date Diagnosed Date Diverticulosis 05/19/2020 Herniated lumbar intervertebral disc 05/19/2020 Thrombocytosis 05/19/2020 Bilateral ovarian cysts 05/08/2020 Overview: Overview: Seeing [facility] Asthma 10/06/2019 Iron deficiency anemia due to chronic blood loss 05/28/2018 Hepatic cyst 03/04/2017 Overview: Overview: 4 noted on MRI 02/2017, no recommendation on further imaging at the time Degenerative joint disease (DJD) of hip 07/22/20 15 Depression 07/22/2015 GERD (gastroesophageal reflux disease) 5 Panic disorder with agoraphobia 07/22/2015 DJD (degenerative joint disease), multiple sites 07/18/2015 Family History Medical History Relation Name Comments Diabetes Brother 1 Heart failure Brother 1 Heart attack Brother 2 Hyperlipidemia Brother 3 Arthritis Brother 4 Asthma Daughter 1 Alcohol abuse Daughter 2 Drug abuse Daughter 2 Heart attack Father Alcohol abuse Mother Cirrhosis Mother Heart attack Sister Brain cancer Son 1 Asthma Son 2 Asthma Son 3 Alcohol abuse Son 4 Drug abuse Son 4 Relation Name Status Comments Brother 1 Brother 2 Brother 3 Brother 4 Daughter 1 Daughter 2 Father Mother Sister Son 1 Son 2 Son 3 Son 4 Social History Tobacco Use Types Packs/Day Years Used Date Smoking Tobacco: Never Smokeless Tobacco: Never Alcohol Use Standard Drinks/Week Comments Yes 0 (1 standard drink = 0.6 oz pur e alcohol) rarely Sex and Gender Information Value Date Recorded Sex Assigned at Not on file Gender Identity Not on file Sexual Orientation Not on file Last Filed Vital Signs Vital Sign Reading Time Taken Comments Blood Pressure 156/84 2020 1:21 PM EDT Pulse 95 2020 1:21 PM EDT Temperature 36.4 C (97.5 F) 2020 1:21 PM EDT Respiratory Rate - - Oxygen Saturation - - Inhaled Oxygen Concentration - - Weight 90.4 kg (199 lb 3.2 oz) 2020 1:21 P M EDT Height 162.6 cm (5' 4 ) 2020 1:21 PM EDT Body Mass Index 34.19 2020 1:21 PM EDT Plan of Treatment Health Maintenance Due Date Last Done Comments Hepatitis C Screening 1950 COVID-19 Vaccine (#1) 1950 Depression Screening 1963 Preventative Health Evaluation 1969 Colon Cancer Screening (Colonoscopy) 1996 Breast Cancer Screening (Mammogram) 2001 Shingrix-Zoster Vaccine (1 of 2) 2001 Fall Risk Assessment 2016 Osteoporosis Screening (DEXA Scan) 2016 DTap / Tdap / Td (2 - Td or Tdap) 12/16/2022 12/16/2012 Influenza Vaccine (Season Ended) 2025 06/22/2019, 05/28/2018, 07/05/2016, Additional history exists RSV Adult > 60+ Yrs or (1 - 1-dose 75+ series) 2026 Pneumococcal Vaccine Completed 05/28/2018, 07/05/20 16 Hepatitis B Vaccines Aged Out No long er eligible based on patient's age to complete this topic RSV Ped < 20 months Aged Out No longe r eligible based on patient's age to complete this topic Care Teams Materials Planner/Production Planner Relationship Specialty Start Date End Date Snow Campbell MD PCP - General Internal Medicine 12/13/16
== END 2025-02-28 14:59 | disposition home or self-care (01) ==
LOC: HO.HMCFM 14:16
PROVIDERS: PCP Internal Medicine; Visit Provider Internal Medicine
DX: Z00.00 Encounter for general adult medical examination without abnormal findings (principal); I10 Essential (primary) hypertension; F33.41 Major depressive disorder, recurrent, in partial remission; K21.9 Gastro-esophageal reflux disease without esophagitis

== ENCOUNTER → 2025-02-28 14:15 | Outpatient (BNVA) | payer MEDICARE, OTHER, SELFPAY | PROVIDERS: PCP Internal Medicine; Visit Provider Internal Medicine | DX: Z00.00 Encounter for general adult medical examination without abnormal findings (principal); I10 Essential (primary) hypertension; F33.41 Major depressive disorder, recurrent, in partial remission; K21.9 Gastro-esophageal reflux disease without esophagitis; F43.21 Adjustment disorder with depressed mood; F41.9 Anxiety disorder, unspecified; G47.00 Insomnia, unspecified; E66.9 Obesity, unspecified; Z68.36 Body mass index [BMI] 36.0-36.9, adult; M54.16 Radiculopathy, lumbar region; M25.572 Pain in left ankle and joints of left foot; Z79.899 Other long term (current) drug therapy | CPT/HCPCS: 96127 ==

== ENCOUNTER 2025-02-28 15:03 | Outpatient (REF) | payer MEDICARE, OTHER, SELFPAY ==
[2025-02-28 17:30] LABS: MANUAL DIFF FLAG NO
[2025-02-28 17:35] LABS: Basophils Absolute Auto 0.1 X10*3/uL (0.0-0.2); Basophils Percent Auto 1.5 % (0-2); Eosinophils Absolute Auto 0.3 X10*3/uL (0.0-0.4); Hemoglobin 12.1 g/dl (12.0-16.0); Imm Gran Abs Auto 0.07 X10*3/uL (0.00-0.03); Imm Gran Pct Auto 0.8 % (0.0-0.4); Lymphocytes Absolute Auto 2.2 X10*3/uL (1.2-4.9); Lymphocytes Percent Auto 25.3 % (20-40); Mean Corpuscular HGB Conc 32.7 g/dl (31.0-35.0); Mean Corpuscular Hemoglobin 27.6 pg (27.0-33.0); Mean Corpuscular Volume 84.3 fL (80.0-98.0); Mean Platelet Volume 9.2 fL (9.4-12.3); Monocytes Absolute Auto 0.6 X10*3/uL (0.1-1.2); Monocytes Percent Auto 6.9 % (2-11); Neutrophils Absolute Auto 5.3 x10*3/uL (2.0-8.3); Neutrophils Percent Auto 61.5 % (45-73); Platelet Count 410 X10*3/uL (160-400); Red Blood Count 4.39 X10*6/uL (4.20-5.50); Red Cell Distribution Width 14.7 % (11.0-16.0); White Blood Count 8.6 X10*3/uL (4.8-10.8)
[2025-02-28 17:48] LABS: Alanine Aminotransferase 22 U/L (0-31); Albumin Level 4.3 g/dL (3.5-5.0); Alkaline Phosphatase 62 U/L (39-117); Anion Gap 12 (12-20); Aspartate Amino Transferase 25 U/L (5-31); Bilirubin Total 0.3 mg/dL (0.0-1.0); Blood Urea Nitrogen 11 mg/dL (9-16); Carbon Dioxide 25 mmol/L (22-29); Chloride 105 mmol/L (96-108); Estimated Glomerular Filt Rate > 60; Glucose Random 103 mg/dL (60-115); Iron 38 mcg/dL (30-160); Percent Iron Saturation 12 % (15-50); Potassium 3.9 mmol/L (3.3-5.1); Sodium 138 mmol/L (135-145); Total Iron Binding Capacity 314 mcg/dL (228-428); Total Protein 7.2 g/dL (6.5-8.0); Unsaturated Iron Binding 276 ug/dL
[2025-03-01 07:31] LABS: Estimated Average Glucose 100 mg/dL; Hemoglobin A1c % 5.1 % (<6.0); Total Hemoglobin (HGBA1C) 3180.6123 umol/L
== END 2025-02-28 15:04 | disposition home or self-care (01) ==
LOC: HO.WFDLDS 15:03
PROVIDERS: Visit Provider Internal Medicine
DX: F33.41 Major depressive disorder, recurrent, in partial remission (principal); K21.9 Gastro-esophageal reflux disease without esophagitis; D64.9 Anemia, unspecified; I10 Essential (primary) hypertension; Z13.1 Encounter for screening for diabetes mellitus
CPT/HCPCS: 36415; 80053; 83036; 83540; 85025

== ENCOUNTER 2025-05-19 11:48 | Outpatient (AMB) | payer MEDICARE, OTHER, SELFPAY ==
--- NOTE | 2025-05-19 11:51 | A.OFFPC_ITS ---
Vital Signs 05/19/25 12:00 Height 5 ft 4 in Weight 211 lb 2 oz BMI 36.2 BP 128/70 Blood Pressure Location Lt brachial Position Sitting Respiration 16 Pulse 96 Pulse Source Pulse Oximeter Temp 97.9 F Temp Source Oral Pulse Oximetry (%) 97 Oxygen Delivery Method Room Air Intake Visit Reasons: [facility] /ED FU Intake Note: [facility] Capacitor Repairer Required: No Is last menstrual period known: No Post menopausal: No Patient : No Allergies tramadol (From Ultra) Allergy (Mild, Verified 05/19/25 11:54) rash Tobacco use date assessed: 05/19/25 Fall risk assessment: No Falls in past year Last assessed Fall Risk: 05/19/25 Dental Screening Dental Screen Date: 05/19/25 Did you have a dental visit in the last 12 months?: Yes Did you have a dental problem in the last 6 months where you did not have access to dental care?: No Was dental information given to patient?: Patient has dentist HPI HPI Comments History of Present Illness Details The patient is a 74 year old female with a past medical history of hypertension, OA, GERD, depression presenting for ER follow up She was assessed in the ER on Apr 30 for generalized weakness, occasional shortness of breath, sweat and the day prior shaking chills. BP was elevated 158/106 with pulse 112. Ddimer was elevated. CTA no PE, showed pulmonary nodules and liver cyst. Mild hyponatremia. [place] much better after fluids. She notes that she felt awful for one day then has felt back to baseline since. Pulm nodules no need for follow up Depression: Stable on lexapro 20mg daily. Her daughter unexpectedly a few months ago and that has been extremely tough on her. She has increased stress from her 27 year old son-he moved out of the house abruptly after desiring to undergo sex change but wouldn't talk to the family about things and now is not in contact. Hypertension: stable on amlodipine and lisinopril. Was tolerating ozempic for weight loss then insurance stopped covering. MSK: stable LS radiculopathy. Right leg has been feeling heavy. Increased low back pain bilateral. Ongoing left ankle pain and swelling. xray with significant DDD. MRI was performed at [facility]-patient was referred to physiatry. Doing well on tylenol codeine as needed Colonoscopy 2022 ROS see HPI PHYSICAL EXAM: GENERAL: Alert and oriented x 3. NAD EYES: EOMI. Anicteric. HENT: Moist mucous membranes. No scleral icterus. No cervical lymphadenopathy. LUNGS: Clear to auscultation bilaterally. CARDIOVASCULAR: Regular rate and rhythm. No murmur. No JVD. ABDOMEN: Soft, non-tender +bs EXTREMITIES: No edema. Non-tender. SKIN: No rashes or lesions. Warm. NEUROLOGIC: No focal neurological deficits. CN II-XII grossly intact PSYCHIATRIC: Cooperative. Appropriate mood and affect [facility] Medical History Hypertension Major depressive disorder, recurrent episode, in partial remission GERD without esophagitis Lumbosacral radiculopathy Left ankle pain Anemia, unspecified DDD (degenerative disc disease), lumbosacral Surgical History History of foot surgery Status post excision of lipoma History of cholecystectomy Family History Mother Alcoholism Brother Diabetes History of quadruple bypass Other Substance abuse Social History Household Members: None Housing: House Are you a primary senior resident care director to a significant other at home: No Do you presently have visiting nurse or other home services: No 75 years or older and lives alone: No Alcohol intake: never Patient Tobacco Use Status: Never used Tobacco e-Cigarette/Vaping Use: Never Used Second Hand Smoke Exposure: Yes (past ) service: No Current occupational status: retired Current occupational exposures/hazards: No Cognitive needs: No Hearing needs: No Vision needs: Yes (glasses) Questionnaire Thrive Questionnaire Date Thrive assessed: 05/09/25 I am a: Patient What is your living situation today?: I have a steady place to live Within the past 12 months, did the food you bought not last and you didn't have the money to get more?: Never true Within the past 12 months, did you worry whether your food would run out before you got money to buy more?: Never true Do you have trouble paying for medicines?: No Do you have trouble getting transportation to medical appointments?: No Do you have trouble paying your heating and electricity bill?: No Do you have trouble taking care of your child, family member or friend?: No Do you have trouble with day-to-day activities such as bathing, preparing meals, shopping, managing finances, etc.?: No Are you currently unemployed and looking for a job?: No Are you interested in more education?: No Please select the resources that you would like help with: None Currently or been in a relationship where the following occur: No concerns reported THRIVE Score: 0 AUDIT C Alcohol Use Questionnaire (AUDIT-C) 1. How often do you have a drink containing alcohol?: 2-4 times a month Total Score: 2 JINA-7 AMB Questionnaire JINA-7 Date JINA - 7 assessed: 01/01/24 Feeling nervous, anxious, or on edge: 2 = More than half the days Not being able to stop or control worryin = More than half the days Worrying too much about different things: 3 = Nearly every day Trouble relaxin = Nearly every day Being so restless that it is hard to sit still: 0 = Not at all Becoming easily annoyed or irritable: 1 = Several days Feeling afraid as if something awful might happen: 2 = More than half the days Total JINA-7 score (0-4 normal; 5-9 mild; 10-14 moderate; 15-21 severe): 13 Source: Developed by Drs. Nash Denny, Maggie Cuellar, Luisito Canales and colleagues, with an educational milind from [employer]. Physical exam (Primary Care) Tobacco/Smoking Status: Tobacco use Status Tobacco use date assessed 01/01/24 05/19/25 11:53 Patient Tobacco Use Status Never used Tobacco 05/19/25 11:53 Tobacco use type 05/02/25 14:07 e-Cigarette/Vaping Use Never Used 05/19/25 11:53 Thrive Assessment: Date of Thrive Assessment Date Thrive assessed 05/09/25 05/19/25 11:53 Currently or been in a relationship where the following occur: No concerns reported Coding Level of Care Code Est Pt Level 4 (39627) Diagnoses Major depressive disorder, recurrent episode, in partial remission F33.41 Primary hypertension I10 Hypertension type: primary hypertension Anemia, unspecified type D64.9 Anemia type: unspecified type Assessment & Plan Assessment & Plan (1) Major depressive disorder, recurrent episode, in partial remission: Code(s): F33.41 - Major depressive disorder, recurrent, in partial remission Category: Medical (2) Hypertension: Code(s): I10 - Essential (primary) hypertension Category: Medical Qualifiers: Hypertension type: primary hypertension Qualified Code(s): I10 - Essential (primary) hypertension (3) Anemia, unspecified: Code(s): D64.9 - Anemia, unspecified Category: Medical Qualifiers: Anemia type: unspecified type Qualified Code(s): D64.9 - Anemia, unspecified Plan ER follow up Course reviewed. Labs reviewed Patient back to baseline MDD stable HTN controlled on current medications
[2025-05-19 12:00] VITALS: BP 128/70; PULSE 96; RESP 16; TEMP 36.6; O2SAT 97; BMI 36.2
--- OUTSIDE RECORDS SUMMARY | 2025-05-19 16:11 | XMS_ITS | Clinical Summary ---
Author Organization [facility] Address [address] [place] [address] Care Team Providers Care Compliance Nurse Name Role Phone Snow Campbell MD Primary Care Provider [phone] Allergies Active Allergy Reactions Criticality Noted Date [...] Bilateral ovarian cysts 05/08/2020 Overview: Overview: Seeing [facility] Asthma 10/06/2019 Iron deficiency anemia due to [...] Td or Tdap) 12/16/2022 12/16/2012 Influenza Vaccine (#1) 2025 9, 05/28/2018, 07/05/2016, Additional history exists RSV Adult > 60+ Yrs or (1 - 1-dose 75+ series) 2026 Pneumococcal Vaccine Completed 05/28/2018, 07/05/20 16 Hepatitis B Vaccines Aged Out No long er eligible based on patient's age to complete this topic RSV Ped < 20 months Aged Out No longe r eligible based on patient's age to complete this topic Care Teams Compliance Nurse Relationship Specialty Start Date End Date Snow Campbell MD PCP - General Internal Medicine 12/13/16
== END 2025-05-19 12:14 | disposition home or self-care (01) ==
LOC: HO.HMCFM 11:49
PROVIDERS: PCP Internal Medicine; Visit Provider Internal Medicine
DX: F33.41 Major depressive disorder, recurrent, in partial remission (principal); I10 Essential (primary) hypertension; D64.9 Anemia, unspecified

== ENCOUNTER → 2025-05-19 11:48 | Outpatient (BNVA) | payer MEDICARE, OTHER, SELFPAY | PROVIDERS: PCP Internal Medicine; Visit Provider Internal Medicine | DX: F33.41 Major depressive disorder, recurrent, in partial remission (principal); I10 Essential (primary) hypertension; D64.9 Anemia, unspecified | CPT/HCPCS: 99212 ==

== ENCOUNTER 2025-06-14 10:48 | Outpatient (REF) | payer MEDICARE, OTHER, SELFPAY ==
[2025-06-14 19:10] LABS: Resp Syncy Virus RNA Qual PCR NEGATIVE (Negative); SARS COV2 PCR INHOUSE POSITIVE (Negative)
== END 2025-06-14 10:49 | disposition home or self-care (01) ==
LOC: HO.LAB 10:48
PROVIDERS: PCP Internal Medicine; Visit Provider Nurse Practitioner Family
DX: J06.9 Acute upper respiratory infection, unspecified (principal)
CPT/HCPCS: 87637; 99212

== ENCOUNTER 2025-06-14 10:48 | Outpatient (AMB) | payer MEDICARE, OTHER, SELFPAY ==
--- NOTE | 2025-06-14 10:49 | MHC.PC.OV ---
Vital Signs 06/14/25 10:55 Height 5 ft 4 in Weight 210 lb 2 oz BMI 36.1 BP 122/72 Blood Pressure Location Rt brachial Position Sitting Respiration 16 Pulse 99 Pulse Source Pulse Oximeter Temp 97.9 F Temp Source Oral Pulse Oximetry (%) 97 Oxygen Delivery Method Room Air Intake Visit Reasons: Sick since Intake Note: patient here c/o being sick since , congestion, stuffiness and cough Scarfer Operator Required: No Is last menstrual period known: No Post menopausal: No Patient : No Allergies tramadol (From [facility]) Allergy (Mild, Verified 06/14/25 10:58) rash Medication List - Last Reconciled 06/14/25 by Jg Little CNP acetaminophen 325 mg PO Q6H PRN 30 days acetaminophen-codeine 300-30 mg 1 tab PO Q6H PRN 30 days amlodipine 5 mg PO DAILY 90 days escitalopram oxalate 20 mg PO DAILY ferrous sulfate ER (Slow Fe) 137 mg PO DAILY ibuprofen 600 mg PO Q6H PRN lisinopril 40 mg PO DAILY 90 days omeprazole 40 mg PO DAILY [SLOW RELEASE IRON 45MG TABLETS 1 tab PO DAILY] Tobacco use date assessed: 06/14/25 Fall risk assessment: No Falls in past year Last assessed Fall Risk: 06/14/25 Dental Screening Dental Screen Date: 06/14/25 Did you have a dental visit in the last 12 months?: Yes Did you have a dental problem in the last 6 months where you did not have access to dental care?: No Was dental information given to patient?: Patient has dentist HPI HPI Comments History of Present Illness Details 75-year-old female presents with complaints of feeling like crap. She notes chest congestion, constant cough with occasional clear-yellow phlegm, chills. Her symptoms have been ongoing for the past 6 days. Symptoms significantly improved yesterday but worsened again last night. She has taken multiple otc regimen without relief. One to two weeks weeks ago, her and granddaughter were sick with upper respiratory symptoms which resoved. She is not currently vaccinated for covid or flu. [facility] Medical History Hypertension Major depressive disorder, recurrent episode, in partial remission GERD without esophagitis Lumbosacral radiculopathy Left ankle pain Anemia, unspecified DDD (degenerative disc disease), lumbosacral Surgical History History of foot surgery Status post excision of lipoma History of cholecystectomy Family History Mother Alcoholism Brother Diabetes History of quadruple bypass Other Substance abuse Social History Household Members: None Housing: House Are you a primary hospice care consultant to a significant other at home: No Do you presently have visiting nurse or other home services: No 75 years or older and lives alone: No Alcohol intake: never Patient Tobacco Use Status: Never used Tobacco e-Cigarette/Vaping Use: Never Used Second Hand Smoke Exposure: Yes (past ) service: No Current occupational status: retired Current occupational exposures/hazards: No Cognitive needs: No Hearing needs: No Vision needs: Yes (glasses) Questionnaire PHQ-9 Over the last 2 weeks, how often have you been bothered by any of the following problems? 1. Little interest or pleasure in doing things: not at all 2. Feeling down, depressed, or hopeless: not at all 3. Trouble falling or staying asleep, or sleeping too much: not at all 4. Feeling tired or having little energy: not at all 5. Poor appetite or overeating: not at all 6. Feeling bad about yourself - or that you are a failure or have let yourself or your family down: not at all 7. Trouble concentrating on things, such as reading the newspaper or watching television: not at all 8. Moving or speaking so slowly that other people could have noticed. Or the opposite - being so fidgety or restless that you have been moving around a lot more than usual: not at all 9. Thoughts that you would be better off or of hurting yourself in some way: not at all Total score: 0 Depression Screening Interpretation: Negative Depression Screening Done: Yes Source: Developed by Drs. Nash Denny, Maggie Cuellar, Luisito Canales and colleagues, with an educational milind from [employer]. Thrive Questionnaire Date Thrive assessed: 05/09/25 I am a: Patient What is your living situation today?: I have a steady place to live Within the past 12 months, did the food you bought not last and you didn't have the money to get more?: Never true Within the past 12 months, did you worry whether your food would run out before you got money to buy more?: Never true Do you have trouble paying for medicines?: No Do you have trouble getting transportation to medical appointments?: No Do you have trouble paying your heating and electricity bill?: No Do you have trouble taking care of your child, family member or friend?: No Do you have trouble with day-to-day activities such as bathing, preparing meals, shopping, managing finances, etc.?: No Are you currently unemployed and looking for a job?: No Are you interested in more education?: No Please select the resources that you would like help with: None Currently or been in a relationship where the following occur: No concerns reported THRIVE Score: 0 JINA-7 AMB Questionnaire JINA-7 Date JINA - 7 assessed: 01/01/24 Source: Developed by Drs. Nash Denny, aMggie Cuellar, Luisito Canales and colleagues, with an educational milind from [employer]. Review of Systems Const Details: Const Reports chills, Denies fatigue, Denies fever(s), Denies headache(s) and Denies weakness ENT Reports as per HPI Card Denies chest pain, Denies lightheadedness, Denies dyspnea and Denies other (Palpitations) Resp Reports cough, Denies dyspnea, Denies wheezing and Denies other ( shortness of breath) GI Denies abdominal pain, Denies melena, Denies hematochezia, Denies change in bowel habits, Denies dyspepsia and Denies nausea Denies hematuria and Denies dysuria Musc Denies abnormal gait, Denies myalgias, Denies arthralgias, Denies numbness and Denies tingling Skin/Breast Denies rash, Denies unusual bruising and Denies wounds Neuro Denies abnormal gait, Denies dizziness, Denies headache(s), Denies memory loss, Denies numbness, Denies Sensory deficit (Neuro), Denies tingling and Denies weakness Psych Denies anxiety, Denies depression, Denies memory loss Endo Denies cold intolerance, Denies fatigue, Denies heat intolerance, Denies polydipsia and Denies polyuria Aller/Immun Denies wheezing Physical exam (Primary Care) Tobacco/Smoking Status: Tobacco use Status Tobacco use date assessed 05/19/25 06/14/25 10:52 Patient Tobacco Use Status Never used Tobacco 06/14/25 10:52 Tobacco use type 05/02/25 14:07 e-Cigarette/Vaping Use Never Used 06/14/25 10:52 PHQ-9: PHQ-9 Score PHQ-9: Total score 0 06/14/25 10:52 Depression Screening Interpretation: Negative Thrive Assessment: Date of Thrive Assessment Date Thrive assessed 05/09/25 06/14/25 10:52 Currently or been in a relationship where the following occur: No concerns reported Const Other: General: no acute distress and well developed Nutritional Appearance: well nourished Orientation/consciousness: patient oriented x3 HENMT Head is normocephalic Bilateral ear canal and TM are normal Nasal turbinates with mild erythema and edema Oropharynx are pink and moist Sinuses are nontender with palpation No auricular or cervical lymphadenopathy Eyes General: appearance normal, both eyes and all related structures Pupils: Equal, round and reactive pupils present EOM: EOMs intact bilaterally Resp Effort & Inspection: normal respiratory effort Auscultation: clear to auscultation bilaterally Cardio Rate: regular rate Rhythm: regular rhythm Heart sounds: S1 normal heart sound present, S2 normal heart sound present, no gallops, no murmurs and no rubs GI Palpation (GI): No Abdominal aortic bruit present, Soft to palpation, nontender, No hepatosplenomegaly present and No Rebound tenderness present Auscultation: normal bowel sounds General: Yes no CVA tenderness Back/Spine/Pelvis Back: no CVA tenderness Cervical Spine: cervical ROM normal and No Cervical spine tenderness Thoracic/Lumbar Spine: thoraco-lumbar ROM normal, No pain with thoraco-lumbar ROM, No thoracic spinal tenderness and No lumbar spinal tenderness Extrem General: Yes normal to inspection, No edema and No calf tenderness Skin General: warm and dry. Normal skin color. Normal skin turgor Neuro General: patient oriented x3, gait normal and no focal neuro deficit Cranial nerves: Yes Equal, round and reactive pupils present Cognition (Neuro): normal cognition Gait exam (Neuro): Normal gait present Sensory Exam: No Sensory deficit (Neuro) Psych Appearance: grossly normal Affect: normal affect Attitude: cooperative Thought process: Normal thought process present Coding Level of Care Code Est Pt Level 3 (35180) Diagnoses Viral upper respiratory illness J06.9 Assessment & Plan Assessment & Plan (1) Viral upper respiratory illness: Code(s): J06.9 - Acute upper respiratory infection, unspecified Category: Medical Plan: Likely viral illness though possibly allergies No exam evidence of bacterial infection Viral illness There is no antibiotic medication for viruses.? They must run their course.? Most average 5-7 days but 7-10 days is not uncommon and up to 14 days is still possible.? A cough is often the last symptom to resolve and this can last for weeks in some cases. Rest Hydrate well -? Drink plenty of fluids.? Especially water. Tylenol or ibuprofen for muscle aches, headache, fever/discomfort Cannot rule out COVID-19/RSV/Flu infection Nasal swab acquired and will be sent to the lab Cetirizine, benzonatate, and Flonase as prescribed Return for new or worsening symptoms Verbalized understanding and agreed with treatment plan. Orders: Orders SARS-CoV2/FLU/RSV Today J06.9 - Acute upper respiratory infection, unspecified Medications: New cetirizine 10 mg PO DAILY 30 tabs 0RF 30 days fluticasone propionate 50 mcg/actuation (Flonase Allergy Relief) Administer into each nostril. Two actuations in each nostril daily x1 week; and then 1-2 actuations in each nostril daily 2 sprays intranasal DAILY 16 grams 2RF benzonatate 100 mg PO BID PRN 10 caps 0RF cough
[2025-06-14 10:55] VITALS: BP 122/72; PULSE 99; RESP 16; TEMP 36.6; O2SAT 97; BMI 36.1
--- OUTSIDE RECORDS SUMMARY | 2025-06-14 13:13 | XMS_ITS | Clinical Summary ---
Author Organization [facility] Address [address] [place] [address] Care Team Providers Care Emotional Disabilities Teacher Name Role Phone Snow Campbell MD Primary Care Provider [phone] Allergies Active Allergy Reactions Criticality Noted Date [...] Bilateral ovarian cysts 05/08/2020 Overview: Overview: Seeing [facility] Asthma 10/06/2019 Iron deficiency anemia due [...] age to complete this topic Care Teams Emotional Disabilities Teacher Relationship Specialty Start Date End Date Snow Campbell MD PCP - General Internal Medicine 12/13/16
== END 2025-06-14 12:15 | disposition home or self-care (01) ==
LOC: HO.HMCFM 10:49
PROVIDERS: PCP Internal Medicine; Visit Provider Nurse Practitioner Family
DX: J06.9 Acute upper respiratory infection, unspecified (principal)

== ENCOUNTER 2025-09-05 11:44 | Outpatient (AMB) | payer MEDICARE, OTHER, SELFPAY ==
--- NOTE | 2025-09-05 11:46 | MHC.PC.OV ---
Vital Signs 09/05/25 11:51 09/05/25 11:54 Height 5 ft 4 in Weight 213 lb 2 oz BMI 36.6 BP 124/94 H 123/76 Blood Pressure Location Lt brachial Lt brachial Position Sitting Sitting Pulse 95 Pulse Source Pulse Oximeter Temp 97.9 F Temp Source Oral Pulse Oximetry (%) 95 Oxygen Delivery Method Room Air Intake Visit Reasons: f/up Intake Note: Follow up. Diagnosed with strip throat and covid 6-7 days ago at [facility] Progress Clerk Required: No Allergies tramadol (From [facility]) Allergy (Mild, Verified 09/05/25 11:48) rash Tobacco use date assessed: 06/14/25 Dental Screening Dental Screen Date: 06/14/25 HPI HPI Comments History of Present Illness Details The patient is a 75 year old female with a past medical history of hypertension, OA, GERD, depression presenting for follow up Diagnosed with COVID and strep last week. She had a round of antibiotics and steroids. Her breathing is back to normal. Some residual cough-requests new rx for cough syrup Depression: She does well on lexapro 20mg daily. Her daughter this year unexpectedly a few months ago and that has been extremely tough on her. She has increased stress from her 27 year old son-he moved out of the house abruptly after desiring to undergo sex change but wouldn't talk to the family about things and now is not in contact. She had lorazepam but was not using it Hypertension: stable on amlodipine and lisinopril. Was tolerating ozempic for weight loss then insurance stopped covering. MSK: stable LS radiculopathy. Right leg has been feeling heavy. Increased low back pain bilateral. Ongoing left ankle pain and swelling. xray with significant DDD. MRI was performed at [facility]-patient was referred to physiatry. Doing well on tylenol codeine as needed Colonoscopy 2022 ROS see HPI PHYSICAL EXAM: GENERAL: Alert and oriented x 3. NAD EYES: EOMI. Anicteric. HENT: Moist mucous membranes. No scleral icterus. No cervical lymphadenopathy. LUNGS: Clear to auscultation bilaterally. CARDIOVASCULAR: Regular rate and rhythm. No murmur. No JVD. ABDOMEN: Soft, non-tender +bs EXTREMITIES: No edema. Non-tender. SKIN: No rashes or lesions. Warm. NEUROLOGIC: No focal neurological deficits. CN II-XII grossly intact PSYCHIATRIC: Cooperative. Appropriate mood and affect [facility] Medical History Hypertension Major depressive disorder, recurrent episode, in partial remission GERD without esophagitis Lumbosacral radiculopathy Left ankle pain Anemia, unspecified DDD (degenerative disc disease), lumbosacral Surgical History History of foot surgery Status post excision of lipoma History of cholecystectomy Family History Mother Alcoholism Brother Diabetes History of quadruple bypass Other Substance abuse Social History Household Members: None Housing: House Are you a primary home health care case manager to a significant other at home: No Do you presently have visiting nurse or other home services: No 75 years or older and lives alone: No Alcohol intake: never Patient Tobacco Use Status: Never used Tobacco e-Cigarette/Vaping Use: Never Used Second Hand Smoke Exposure: Yes (past ) service: No Current occupational status: retired Current occupational exposures/hazards: No Cognitive needs: No Hearing needs: No Vision needs: Yes (glasses) Questionnaire Thrive Questionnaire Date Thrive assessed: 05/09/25 I am a: Patient What is your living situation today?: I have a steady place to live Within the past 12 months, did the food you bought not last and you didn't have the money to get more?: Never true Within the past 12 months, did you worry whether your food would run out before you got money to buy more?: Never true Do you have trouble paying for medicines?: No Do you have trouble getting transportation to medical appointments?: No Do you have trouble paying your heating and electricity bill?: No Do you have trouble taking care of your child, family member or friend?: No Do you have trouble with day-to-day activities such as bathing, preparing meals, shopping, managing finances, etc.?: No Are you currently unemployed and looking for a job?: No Are you interested in more education?: No Currently or been in a relationship where the following occur: No concerns reported THRIVE Score: 0 JINA-7 AMB Questionnaire JINA-7 Date JINA - 7 assessed: 01/01/24 Source: Developed by Drs. Nash Denny, Maggie Cuellar, Luisito Canales and colleagues, with an educational milind from [employer]. Physical exam (Primary Care) Tobacco/Smoking Status: Tobacco use Status Tobacco use date assessed 06/14/25 09/05/25 11:48 Patient Tobacco Use Status Never used Tobacco 09/05/25 11:48 Tobacco use type 05/02/25 14:07 e-Cigarette/Vaping Use Never Used 09/05/25 11:48 Thrive Assessment: Date of Thrive Assessment Date Thrive assessed 05/09/25 09/05/25 11:48 Currently or been in a relationship where the following occur: No concerns reported Coding Level of Care Code Est Pt Level 4 (66344) Diagnoses Major depressive disorder, recurrent episode, in partial remission F33.41 Primary hypertension I10 Hypertension type: primary hypertension Obesity (BMI 30-39.9) E66.9 Viral upper respiratory illness J06.9 Assessment & Plan Assessment & Plan (1) Major depressive disorder, recurrent episode, in partial remission: Code(s): F33.41 - Major depressive disorder, recurrent, in partial remission Category: Medical (2) Hypertension: Code(s): I10 - Essential (primary) hypertension Category: Medical Qualifiers: Hypertension type: primary hypertension Qualified Code(s): I10 - Essential (primary) hypertension (3) Obesity (BMI 30-39.9): Code(s): E66.9 - Obesity, unspecified Category: Medical (4) Viral upper respiratory illness: Code(s): J06.9 - Acute upper respiratory infection, unspecified Category: Medical Plan 75 year old female presenting for follow up Recent COVID, strep -treated with antibiotics. continue cough syrup Depression and anxiety are stable Hypertension-stable on current medicaitons Medications: Refilled codeine-guaifenesin 10-100 mg/5 mL 5 mL PO Q4-6H PRN 473 mL 0RF cold
[2025-09-05 11:51] VITALS: BP 124/94; PULSE 95; TEMP 36.6; O2SAT 95; BMI 36.6
[2025-09-05 11:54] VITALS: BP 123/76
--- OUTSIDE RECORDS SUMMARY | 2025-09-05 13:48 | XMS_ITS | Clinical Summary ---
Author Organization [facility] Prior to 02/05/25 Address [address] [place] [address] Care Team Providers Care Orthopedic Shoe Maker Name Role Phone Snow Campbell MD Primary Care Provider [phone] Allergies Active Allergy Reactions Criticality Noted Date [...] Bilateral ovarian cysts 05/08/2020 Overview: Overview: Seeing [facility] Asthma 10/06/2019 Iron deficiency anemia due [...] age to complete this topic Care Teams Orthopedic Shoe Maker Relationship Specialty Start Date End Date Snow Campbell MD PCP - General Internal Medicine 12/13/16
--- OUTSIDE RECORDS SUMMARY | 2025-09-05 13:48 | XMS_ITS | Patient Health Record ---
Author Organization [facility] Address [address] [place] [address] Care Team Providers Care Survey Supervisor Name Role Phone IAN ASCENCIO md Primary Care Provider IAN Hager Unavailable [phone] Allergies Allergen (clinical drug ingredient) Drug/Non Drug Allergy documented on EMR Reaction Allergy Type Onset Date Status tramadol Ultram Unknown Drug Allergy Active Reason For Referral No Information Medications Medication SIG (Take, Route, Frequency, Duration) Notes Start Date End Date Status Lisinopril 40 MG Tablet 1 tab(s) orally once a day; Duration: 90 DAY(S) 12/07/2020 Active Lexapro 20 MG Tablet 1 tab(s) orally once a day; Duration: 90 days 12/07/2020 Active Fluticasone Furoate 93 MCG/INH SPRAY 1 SPRAY(S) IN EACH NOSTRIL 2 TIMES A DAY; Duration: 90 DAYS NAME ONLY Conversion from [employer] Review and pick correct strength-formulati on from [employer] options. If intended option is not shown, discontinue and re-order from Quick Search. Active Omeprazole 20 MG Capsule Delayed Release 1 cap(s) orally once a day; Duration: 90 days Unknown Probiotic CAPSULE 2 CAPSULES ORAL ONCE A DAY NAME ONLY Conversion from [employer] Review and pick correct strength-formulati on from [employer] options. If intended option is not shown, discontinue and re-order from Quick Search. Unknown Ibuprofen 600 MG Tablet 1 tab(s) orally every 6 hours; Duration: 90 days Unknown Albuterol Sulfate (2.5 MG/3ML) 0.083% Nebulization Solution 3 mL by nebulizer every 6 hours prn; Duration: 90 days Unknown Flonase Allergy Relief 50 MCG/ACT Suspension 1 spray(s) in each nostril once a day; Duration: 90 day(s) Unknown Fluticasone Propionate 50 MCG/ACT Suspension 1 spray(s) in each nostril once a day; Duration: 30 day(s) 10/19/2021 Active ALBUTEROL (EQV-PROAIR HFA) 90 MCG/INH AEROSOL 2 PUFF(S) INHALED EVERY 4 HOURS PRN SHORTNESS OF BREATH; Duration: 90 DAY(S) *Please review for potential replacement for e-prescription and drug interaction check* 02/22/2021 Unknown Acetaminophen 325 MG Tablet 2 tab(s) orally every 4 hours prn pain or fever; Duration: 90 days Unknown Social History Social History Additional Details Category Social Info Options Details General Occupation: Retired group [employer] alcohol use: yes 3 Weekly drug use: no Coffee/Tea/Soda: yes 1 Coffee, 1 Tea Marital Status smokers in household no Problems Problem Type SNOMED Code ICD Code Onset Dates Problem Status W/U Status Risk Notes Problem History of polyp of colon (situation) (156802279) Personal history of colonic polyps (Z86.010) Active confirmed Problem Diverticular disease of colon (893871566) Diverticulosis (K57.90) Active confirmed Problem Essential hypertension (95489585) Hypertension, essential (I10) Active confirmed Problem Anemia (735802045) Anemia, unspecified type (D64.9) Active confirmed Problem Single episode of major depression in full remission (79400276) Depression, major, in remission (F32.5) Active confirmed Problem Degeneration of intervertebral disc (75660927) Multilevel degenerative disc disease (M53.9) Active confirmed Problem Essential hypertension (77959736) Hypertension, unspecified type (I10) Active confirmed Problem Gastroesophageal reflux disease (742505131) Gastroesophageal reflux disease, unspecified whether esophagitis present (K21.9) Active confirmed Plan Of Treatment No Information Insurance Providers Payer Name Payer Address Payer Phone Subscriber Number Group Number Insured Name Patient Relationship to Insured Coverage Start Date Coverage End Date [employer]IC[employer] [facility] [id number] [place] [address] [id number] HUNTER THAKKAR Self - patient is the insured [facility] [address] [place], [place] [id number] HUNTER THAKKAR Self - patient is the insured Medical (General) History Medical History History ICD Code Esophageal reflux Cyst on liver herniated disc in neck and lower back Colonoscopy 01/04/05 - R colon adenoma // Mild Sigmoid Diverticulosis EGD 01/04/07 - Mild to modera te distal esophagitis // Large HH // No gastric outlet obstruction, ulcers, neoplasms Colonoscopy 06/11/2007 - Gra de 2 int hem. Path: Colonic mucosa without pathologic change. EGD 06/11/2007 - Medium hiat al hernia. Path: Duodenal mucosa without pathologic change, nrml villous architecture. Colonoscopy 11/06/2015 - Mod diverticulo sis in the sigmoid colon & L colon Depression Hypertension Surgical History Surgery Date(Month/Year) Ovaries Removed Bilateral Hip Replacment Broken left foot Gallbladder benign tumor removed from RUQ cholecystectomy
== END 2025-09-05 12:16 | disposition home or self-care (01) ==
LOC: HO.HMCFM 11:44
PROVIDERS: PCP Internal Medicine; Visit Provider Internal Medicine
DX: F33.41 Major depressive disorder, recurrent, in partial remission (principal); I10 Essential (primary) hypertension; E66.9 Obesity, unspecified; J06.9 Acute upper respiratory infection, unspecified

== ENCOUNTER → 2025-09-05 11:44 | Outpatient (BNVA) | payer MEDICARE, OTHER, SELFPAY | PROVIDERS: PCP Internal Medicine; Visit Provider Internal Medicine | DX: F33.41 Major depressive disorder, recurrent, in partial remission (principal); I10 Essential (primary) hypertension; E66.9 Obesity, unspecified; M54.17 Radiculopathy, lumbosacral region; M25.572 Pain in left ankle and joints of left foot; M51.379 Other intervertebral disc degeneration, lumbosacral region without mention of lumbar back pain or lower extremity pain; J06.9 Acute upper respiratory infection, unspecified | CPT/HCPCS: 99212 ==